=== PATIENT | female | born 1965 | race Caucasian/White ===

== ENCOUNTER → 2016-09-12 | Outpatient (REF) | payer SELFPAY ==
[~2016-09-12] MED LIST: CIPR500T89 PO; COLA100C3 PO; CORT20TA PO; DDAV0.013 PO; DULC10SU2 PR; KEPP250T5 PO; LOPR1TAB6 PO; LORT5TAB PO; META28.35 PO; MIRA3350 PO; PROTPAK PO; SYNT75TA PO; TYLE325T5 PO; ZOFR20TA PO; [UNRECOGNIZED DRUG - OTHER] PO
[2016-09-12 12:31] LABS: ANION GAP 5 MEQ/L (8-16); BLOOD UREA NITROGEN 10 MG/DL (7-18); CARBON DIOXIDE LEVEL 32 MEQ/L (21-32); CHLORIDE LEVEL 106 MEQ/L (98-107); CREATININE FOR GFR 0.94 MG/DL (0.55-1.02); FREE T4 0.86 NG/DL (0.76-1.46); GLOMERULAR FILTRATION RATE > 60.0 (>51); GLUCOSE, FASTING 95 MG/DL (70-105); POTASSIUM SERUM 4.3 MEQ/L (3.5-5.1); SODIUM LEVEL 143 MEQ/L (136-145)
== END ==
LOC: M LABDRAW1 11:26
PROVIDERS: ATTEND Internal Medicine Endocrinology, Diabetes & Metabolism
DX: D49.7 Neoplasm of unspecified behavior of endocrine glands and other parts of nervous system (principal)

== ENCOUNTER → 2017-04-03 | Outpatient (REF) | payer OTHER ==
[~2017-04-03] MED LIST changes: +CIPR-249 PO; -CIPR500T89 PO; -COLA100C3 PO; +COLA100C5 PO
[2017-04-03 13:19] LABS: ANION GAP 6 MEQ/L (8-16); BLOOD UREA NITROGEN 9 MG/DL (7-18); CARBON DIOXIDE LEVEL 32 MEQ/L (21-32); CHLORIDE LEVEL 104 MEQ/L (98-107); CREATININE FOR GFR 0.88 MG/DL (0.55-1.02); FREE T4 0.93 NG/DL (0.76-1.46); GLOMERULAR FILTRATION RATE > 60.0 (>51); GLUCOSE, FASTING 96 MG/DL (70-105); POTASSIUM SERUM 4.1 MEQ/L (3.5-5.1); SODIUM LEVEL 142 MEQ/L (136-145)
== END ==
LOC: M LABDRAW1 11:22
PROVIDERS: ATTEND Internal Medicine Endocrinology, Diabetes & Metabolism
DX: D49.7 Neoplasm of unspecified behavior of endocrine glands and other parts of nervous system (principal)

== ENCOUNTER → 2017-04-13 | Outpatient (CLI) | payer OTHER ==
[~2017-04-13] MED LIST changes: -CIPR-249 PO; -COLA100C5 PO; -CORT20TA PO; -DDAV0.013 PO; -DULC10SU2 PR; -KEPP250T5 PO; -LOPR1TAB6 PO; -LORT5TAB PO; -META28.35 PO; -MIRA3350 PO; +PROHANCE 279.3MG/ML 5ML VIAL (A9576) As Ordered; -PROTPAK PO; -SYNT75TA PO; -TYLE325T5 PO; -ZOFR20TA PO; -[UNRECOGNIZED DRUG - OTHER] PO
== END ==
LOC: M RAD 09:38
DX: D49.7 Neoplasm of unspecified behavior of endocrine glands and other parts of nervous system (principal); Z98.890 Other specified postprocedural states
CPT/HCPCS: A9576

== ENCOUNTER → 2017-10-12 | Outpatient (REF) | payer OTHER ==
[2017-10-12 19:57] LABS: ANION GAP 10 MEQ/L (8-16); BLOOD UREA NITROGEN 5 MG/DL (7-18); CALCIUM LEVEL 8.2 MG/DL (8.5-10.1); CARBON DIOXIDE LEVEL 26 MEQ/L (21-32); CHLORIDE LEVEL 109 MEQ/L (98-107); CREATININE FOR GFR 1.06 MG/DL (0.55-1.30); FREE T4 1.05 NG/DL (0.76-1.46); GLUCOSE, FASTING 196 MG/DL (70-100); POTASSIUM SERUM 3.8 MEQ/L (3.5-5.1); SODIUM LEVEL 145 MEQ/L (136-145)
== END ==
LOC: M LABDRAW1 15:24
DX: E89.0 Postprocedural hypothyroidism (principal); E27.49 Other adrenocortical insufficiency

== ENCOUNTER → 2018-05-14 | Outpatient (REF) | payer OTHER ==
[~2018-05-14] MED LIST changes: +CIPR-249 PO; +COLA100C5 PO; +CORT20TA PO; +DDAV0.013 PO; +DULC10SU2 PR; +KEPP250T5 PO; +LOPR1TAB6 PO; +LORT5TAB PO; +META28.35 PO; +MIRA3350 PO; -PROHANCE 279.3MG/ML 5ML VIAL (A9576) As Ordered; +PROTPAK PO; +SYNT75TA PO; +TYLE325T5 PO; +ZOFR4TAB16 PO; +[UNRECOGNIZED DRUG - OTHER] PO
[2018-05-14 15:27] LABS: CALCIUM LEVEL 8.5 MG/DL (8.5-10.1); CREATININE FOR GFR 1.24 MG/DL (0.55-1.30); FREE T4 0.95 NG/DL (0.76-1.46); GLOMERULAR FILTRATION RATE 48.2 (>51); POTASSIUM SERUM 3.9 MEQ/L (3.5-5.1)
== END ==
LOC: M LABDRAW1 11:48
PROVIDERS: ATTEND Nurse Practitioner Family
DX: E89.0 Postprocedural hypothyroidism (principal); E27.49 Other adrenocortical insufficiency

== ENCOUNTER → 2018-06-04 | Outpatient (CLI) | payer OTHER ==
[~2018-06-04] MED LIST changes: +PROHANCE 279.3MG/ML 15ML VIAL (A9576) As Ordered ONE; +PROHANCE 279.3MG/ML 5ML VIAL (A9576) As Ordered ONE
--- NOTE | 2018-06-04 12:26 | REP ---
MRI PITUITARY WITHOUT AND WITH CONTRAST: HISTORY: Pituitary tumor. CONTRAST: ProHance 9 mL. COMPARISON: 07/05/2015 and 04/13/2017. The patient is status post right frontotemporal craniotomy. An area of increased signal intensity on T2-weighted images is present in the right frontal lobe. There is dilatation of the overlying cortical sulci and anterior horn of the right lateral ventricle. This represents gliosis and encephalomalacia. Areas of increased signal intensity on T2-weighted images are present in the periventricular and subcortical white matter and janice. This represents small vessel ischemic disease. There is no intraparenchymal hemorrhage, infarct or midline shift. There is no hydrocephalus or extracerebral collection. A mass with moderate heterogeneous enhancement is present in the sella turcica consistent with a pituitary adenoma. The pituitary adenoma measures 3 cm in transverse by 1.9 cm in AP by 2 cm in cephalocaudal dimensions and is increased in size compared to the previous study. There is extension into the suprasellar cistern with compression of the optic chiasm. There is extension into the cavernous sinuses. Mucosal thickening is present in the right maxillary sinus. IMPRESSION: 1. There has been an increase in size of the pituitary adenoma compared to the previous study. 2. Right frontal lobe encephalomalacia. 3. Small vessel ischemic disease. Electronically Signed by Roberto Gill MD 06/04/2018 12:27 P
== END ==
LOC: M RAD 09:13
PROVIDERS: ATTEND Nurse Practitioner Family
DX: D49.7 Neoplasm of unspecified behavior of endocrine glands and other parts of nervous system (principal); G93.89 Other specified disorders of brain; I67.82 Cerebral ischemia; Z98.890 Other specified postprocedural states
CPT/HCPCS: 70553; A9576

== ENCOUNTER → 2019-09-04 | Outpatient (CLI) | payer OTHER ==
[~2019-09-04] MED LIST changes: -PROHANCE 279.3MG/ML 15ML VIAL (A9576) As Ordered ONE; -PROHANCE 279.3MG/ML 5ML VIAL (A9576) As Ordered ONE
[2019-09-04 15:35] LABS: CALCIUM LEVEL 8.5 MG/DL (8.5-10.1); CREATININE FOR GFR 1.06 MG/DL (0.55-1.30); GLOMERULAR FILTRATION RATE 57.5 (>51); POTASSIUM SERUM 3.8 MEQ/L (3.5-5.1)
== END ==
LOC: M LAB 14:48
PROVIDERS: ATTEND Internal Medicine Endocrinology, Diabetes & Metabolism
DX: D49.7 Neoplasm of unspecified behavior of endocrine glands and other parts of nervous system (principal)

== ENCOUNTER → 2019-09-08 | Outpatient (CLI) | payer OTHER ==
[~2019-09-08] MED LIST changes: +PROHANCE 279.3MG/ML 5ML VIAL As Ordered ONE
--- NOTE | 2019-09-08 14:37 | REPVR ---
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 Exam focused on the sella. Contrast material: PROHANCE; Contrast volume: 9 ml; Contrast route: IV; COMPARISON: 1. MRI-Brain W/CON 01/14/2014 8:27 AM 2. [place] - MRI PITUITARY W/O FOLL WITH 06/04/2018 10:25:00 AM The reports from the previous exams were not immediately available. FINDINGS: Brain: Chronic encephalomalacia is present in the right frontal lobe. There is no acute intracranial hemorrhage, cerebral edema, or midline shift. No restricted diffusion is present to suggest acute infarction. Multiple small foci of increased T2 and FLAIR signal within the periventricular and subcortical white matter are present. Mild increased T2 signal is also noted in the central janice. This is nonspecific but could represent early chronic microangiopathic ischemic changes, the sequela of migraine headaches, demyelinating disease, prior trauma, vasculitis, or Lyme disease. Clinical correlation is recommended. Ventricles: There is significant ex vacuo dilation of the right frontal horn. There is no hydrocephalus. Sella: Again noted is a large sellar and suprasellar mass, measuring approximately 3.0 x 2.3 x 2.3 cm (previously 3.0 x 2.2 x 2.0 cm). Invasion of the bilateral cavernous sinus is noted. There is partial encasement of both cavernous carotid arteries. The flow voids do not appear stenotic. Superior displacement and compression of the optic chiasm is noted. Bones/joints: A right pterional craniotomy is present. IMPRESSION: 1. Minimal interval enlargement of the pituitary adenoma 2. Chronic findings as discussed above. Electronically signed by: Red Shields On 09/08/2019 14:37:26 PM
== END ==
LOC: M RAD 12:12
PROVIDERS: ATTEND Internal Medicine Endocrinology, Diabetes & Metabolism
DX: D49.7 Neoplasm of unspecified behavior of endocrine glands and other parts of nervous system (principal); G93.89 Other specified disorders of brain
CPT/HCPCS: 70553; A9576

== ENCOUNTER → 2021-07-21 | Outpatient (CLI) | payer OTHER ==
[~2021-07-21] MED LIST changes: -PROHANCE 279.3MG/ML 5ML VIAL As Ordered ONE
== END ==
LOC: M RAD 10:52
PROVIDERS: ATTEND Nurse Practitioner Family
DX: Z87.891 Personal history of nicotine dependence (principal)

== ENCOUNTER → 2021-08-08 | Outpatient (CLI) | payer OTHER | LOC: M WHC 12:02 | PROVIDERS: ATTEND Nurse Practitioner Family | DX: Z12.31 Encounter for screening mammogram for malignant neoplasm of breast (principal) ==

== ENCOUNTER → 2021-12-15 | Outpatient (CLI) | payer OTHER | LOC: M PLAIMG 08:20 | PROVIDERS: ATTEND Ophthalmology | DX: E23.7 Disorder of pituitary gland, unspecified (principal) ==

== ENCOUNTER → 2022-04-13 | Outpatient (CLI) | payer OTHER | LOC: M RAD 13:45 | DX: E23.6 Other disorders of pituitary gland (principal) ==

== ENCOUNTER → 2022-06-08 | Outpatient (REF) | payer OTHER ==
[2022-06-08 18:10] LABS: CREATININE, URINE 90.6 MG/DL
[2022-06-08 18:12] LABS: MAU/CREAT RATIO 19.8 MCG/MG (0.0-30.0)
[2022-06-08 18:27] LABS: ALBUMIN 3.1 G/DL (3.2-5.2); BILIRUBIN,TOTAL 0.3 MG/DL (0.3-1.2); CALCIUM LEVEL 8.6 MG/DL (8.5-10.1); CHOLESTEROL RISK RATIO 5.12 (<5); CREATININE FOR GFR 1.11 MG/DL (0.55-1.30); GLOMERULAR FILTRATION RATE 53.9 (>51); HDL CHOLESTEROL 38.6 MG/DL (>40); LDL CHOLESTEROL 124.6 MG/DL (<100); POTASSIUM SERUM 3.9 MMOL/L (3.5-5.1); THYROID STIMULATING HORMONE 2.414 uIU/ML (0.55-4.78); TOTAL PROTEIN 6.8 G/DL (5.7-8.2)
[2022-06-08 18:29] LABS: FREE T4 0.79 NG/DL (0.89-1.76)
== END ==
LOC: M LAB REF 16:30
PROVIDERS: ATTEND Nurse Practitioner Family
DX: E11.9 Type 2 diabetes mellitus without complications (principal); E78.5 Hyperlipidemia, unspecified; D49.7 Neoplasm of unspecified behavior of endocrine glands and other parts of nervous system

== ENCOUNTER → 2022-07-06 | Outpatient (REF) | payer OTHER ==
[2022-07-06 17:30] LABS: BASO # 0.1 10^3/uL (0.0-0.2); BASO % 0.7 % (0.0-1.0); EOS # 0.5 10^3/uL (0.0-0.5); EOS % 3.2 % (0.0-3.0); HEMATOCRIT 47.7 % (36.0-47.0); HEMOGLOBIN 14.7 g/dl (12.0-15.5); LYMPH # 5.2 10^3/uL (1.5-5.0); LYMPH % 36.4 % (24.0-44.0); MEAN CORPUSCULAR HEMOGLOBIN 33.6 pg (27.0-33.0); MEAN CORPUSCULAR HGB CONC 30.8 g/dl (32.0-36.5); MEAN CORPUSCULAR VOLUME 109.2 fl (80.0-96.0); MONO # 0.7 10^3/uL (0.0-0.8); MONO % 4.6 % (2.0-8.0); NEUTROPHILS # 7.8 10^3/uL (1.5-8.5); NEUTROPHILS % 54.7 % (36.0-66.0); PLATELET COUNT, AUTOMATED 263 10^3/uL (150-450); RED BLOOD COUNT 4.37 10^6/uL (4.00-5.40); WHITE BLOOD COUNT 14.2 10^3/uL (4.0-10.0)
[2022-07-06 17:34] LABS: ALBUMIN 2.9 G/DL (3.2-5.2); BILIRUBIN,TOTAL 0.5 MG/DL (0.3-1.2); CALCIUM LEVEL 8.9 MG/DL (8.5-10.1); CREATININE FOR GFR 1.15 MG/DL (0.55-1.30); GLOMERULAR FILTRATION RATE 51.8 (>51); TOTAL PROTEIN 6.2 G/DL (5.7-8.2)
[2022-07-06 17:53] LABS: INR 0.95; PROTHROMBIN TIME 12.9 SECONDS (12.5-14.5)
== END ==
LOC: M LAB REF 16:12
PROVIDERS: ATTEND Nurse Practitioner Family
DX: Z01.818 Encounter for other preprocedural examination (principal)

== ENCOUNTER 2022-08-24 21:52 | Emergency (ER) | payer OTHER ==
[~2022-08-24] VITALS: Ht 165.1 cm; Wt 91.0 kg
[2022-08-24] MEDS ORDERED: NS 1,000 ML IV ONE (22:35)
[2022-08-24 22:45] LABS: ABG BASE EXCESS -1.7 (-2.0-2.0); ABG HCO3 22.3 MMOL/L (22.0-26.0); ABG O2 SATURATION 96.2 % (95.0-99.0); ABG PARTIAL PRESSURE CO2 35.6 mmHg (35.0-45.0); ABG TOTAL CO2 23.4 MMOL/L (22.0-29.0); ABG pH (ARTERIAL) 7.414 UNITS (7.350-7.450)
[2022-08-24 22:45] LABS: BASO # 0.1 10^3/uL (0.0-0.2); BASO % 0.8 % (0.0-1.0); EOS # 0.2 10^3/uL (0.0-0.5); EOS % 1.4 % (0.0-3.0); HEMATOCRIT 47.6 % (36.0-47.0); HEMOGLOBIN 16.2 g/dl (12.0-15.5); LYMPH # 3.3 10^3/uL (1.5-5.0); LYMPH % 28.6 % (24.0-44.0); MEAN CORPUSCULAR HEMOGLOBIN 31.5 pg (27.0-33.0); MEAN CORPUSCULAR VOLUME 92.6 fl (80.0-96.0); MONO # 0.9 10^3/uL (0.0-0.8); MONO % 7.6 % (2.0-8.0); NEUTROPHILS # 7.1 10^3/uL (1.5-8.5); NEUTROPHILS % 61.3 % (36.0-66.0); PLATELET COUNT, AUTOMATED 321 10^3/uL (150-450); RED BLOOD COUNT 5.14 10^6/uL (4.00-5.40); WHITE BLOOD COUNT 11.5 10^3/uL (4.0-10.0)
[2022-08-24 22:56] LABS: APPEARANCE, URINE HAZY (CLEAR); BACTERIA, URINE AUTO NEGATIVE (NEGATIVE); BILIRUBIN, URINE AUTO NEGATIVE (NEGATIVE); BLOOD, URINE BLOOD 1+ (NEGATIVE); COLOR, URINE AMBER (YELLOW); GLUCOSE, URINE (UA) AUTO NEGATIVE (NEGATIVE); INR 1.15; KETONE, URINE AUTO NEGATIVE (NEGATIVE); LEUKOCYTE ESTERASE, URINE AUTO TRACE (NEGATIVE); MUCUS, URINE SMALL (NEGATIVE); NITRITE, URINE AUTO NEGATIVE (NEGATIVE); PROTEIN, URINE AUTO NEGATIVE (NEGATIVE); PROTHROMBIN TIME 14.9 SECONDS (12.5-14.5); RBC, URINE AUTO 5 /HPF (0-3); SPECIFIC GRAVITY URINE AUTO 1.009 (1.002-1.035); SQUAMOUS EPITHELIAL CELL UR AU 0 /HPF (0-6); WBC, URINE AUTO 4 /HPF (0-3)
[2022-08-24 23:15] LABS: CK-MB VALUE MASS 4.7 NG/ML (<3.6)
[2022-08-24] MEDS ORDERED: NS 2,730 ML in IV 1 EA IV ONE (23:15)
[2022-08-24 23:17] LABS: ALBUMIN 2.5 G/DL (3.2-5.2); BILIRUBIN,DIRECT 1.4 MG/DL (<0.4); BILIRUBIN,TOTAL 2.1 MG/DL (0.3-1.2); C REACTIVE PROTEIN QUANTITATIV 4.8 MG/DL (<1.0); CALCIUM LEVEL 8.6 MG/DL (8.5-10.1); CREATININE FOR GFR 1.99 MG/DL (0.55-1.30); GLOMERULAR FILTRATION RATE 27.5 (>51); POTASSIUM SERUM 3.7 MMOL/L (3.5-5.1); TOTAL PROTEIN 6.9 G/DL (5.7-8.2)
[2022-08-24 23:18] LABS: RSV AMPLIFICATION NEGATIVE (NEGATIVE)
[2022-08-24 23:21] LABS: MB/CK RELATIVE INDEX 0.43 (< OR =4)
[2022-08-24] MEDS ORDERED: AZITHROMYCIN INJ 500 MG, VIAL MATE ADAPTER 1 EACH in NS 250 ML IV ONE (23:40)
[2022-08-24] MEDS ORDERED: cefTRIAXone SOD 1 GM in D5W MINI-BAG PLUS 50 ML IV ONE (23:40)
[2022-08-25] MEDS ORDERED: ROSU40TA4 PO (00:33)
[2022-08-25] MEDS ORDERED: HOME MED LIST COMPLETE! XX SCH (00:35)
[2022-08-25] MEDS ORDERED: FLUID PLACE HOLDER IV ONE (02:00)
[2022-08-25] MEDS ORDERED: DEXTROSE 50% 50ML SYRINGE IV PRN (02:00)
[2022-08-25] MEDS ORDERED: ACYCLOVIR IV SCH (02:00)
[2022-08-25] MEDS ORDERED: VANCOMYCIN HCL IV ONE (02:00)
[2022-08-25] MEDS ORDERED: GLUCAGON INJ 1MG VIAL SC PRN (02:00)
[2022-08-25] MEDS ORDERED: FLUID PLACE HOLDER IV SCH (02:00)
[2022-08-25] MEDS ORDERED: AMPICILLIN SOD 2 GM in D5W MINI-BAG PLUS 100 ML IV SCH (02:00)
[2022-08-25] MEDS ORDERED: GLUCOSE 4GM CHEW TABLET PO PRN (02:00)
[2022-08-25] MEDS ORDERED: MEROPENEM INJ 2 GM in NS 100 ML IV SCH (02:30)
[2022-08-25] MEDS ORDERED: NS 1,000 ML IV SCH (03:00)
[2022-08-25] MEDS ORDERED: VANCOMYCIN HCL 1,000 MG, VIAL MATE ADAPTER 1 EACH in D5W 250 ML IV SCH (03:00)
[2022-08-25] MEDS ORDERED: NS 1,000 ML IV ONE (03:35)
[2022-08-25] MEDS ORDERED: VANCOMYCIN HCL 1,000 MG, VIAL MATE ADAPTER 1 EACH in D5W 250 ML IV ONE (04:00)
[2022-08-25 04:49] LABS: ALBUMIN 1.8 G/DL (3.2-5.2); BILIRUBIN,TOTAL 1.7 MG/DL (0.3-1.2); CALCIUM LEVEL 7.4 MG/DL (8.5-10.1); CREATININE FOR GFR 1.79 MG/DL (0.55-1.30); GLOMERULAR FILTRATION RATE 31.1 (>51); POTASSIUM SERUM 3.4 MMOL/L (3.5-5.1); TOTAL PROTEIN 5.1 G/DL (5.7-8.2)
[2022-08-25 04:59] LABS: HEMATOCRIT 36.1 % (36.0-47.0); MEAN CORPUSCULAR HEMOGLOBIN 31.8 pg (27.0-33.0); MEAN CORPUSCULAR HGB CONC 33.5 g/dl (32.0-36.5); PLATELET COUNT, AUTOMATED 245 10^3/uL (150-450)
[2022-08-25] MEDS ORDERED: MEROPENEM INJ 1 GM in IV 1 EA IV SCH ×2 (05:00→05:30)
[2022-08-25] MEDS ORDERED: HYDROCORTISONE 10 MG TAB PO ONE (05:00)
[2022-08-25 05:01] LABS: HEMOGLOBIN 12.1 g/dl (12.0-15.5)
[2022-08-25] MEDS ORDERED: INSULIN LISPRO (NovoLOG) PER UNIT SC SCH (06:00)
[2022-08-25] MEDS ORDERED: LEVOTHYROXINE 75MCG TABLET (0.075MG) PO SCH (06:00)
[2022-08-25 10:00] VITALS: BP 97/52; TEMP 99.4; O2SAT 93
[2022-08-25] MEDS ORDERED: cefTRIAXone SOD 2 GM in D5W MINI-BAG PLUS 50 ML IV SCH (12:00)
[2022-08-25] MEDS ORDERED: HEPARIN SOD (PORCINE) 5000UNITS/ML 1ML VIAL/SYRINGE SC SCH (22:00)
[2022-08-28 12:07] LABS: BODY FLUID CULTURE Not indicated. (.); ORGANISM ID Not indicated. (.); SPECIMEN SOURCE Urine (.); URINE STREP PNEUMONIAE ANTIGEN Negative (Negative)
== END 2022-08-25 10:02 | disposition short-term general hospital (02) ==
LOC: M ED 21:52 → UNDOADMIN 08-25 01:59 → M ED INP 08-25 01:59 → UNDODISIN 08-25 10:02
DX: T81.49XA Infection following a procedure, other surgical site, initial encounter (principal); Y83.8 Other surgical procedures as the cause of abnormal reaction of the patient, or of later complication, without mention of misadventure at the time of the procedure; N17.9 Acute kidney failure, unspecified; T81.44XA Sepsis following a procedure, initial encounter; A41.9 Sepsis, unspecified organism; J18.9 Pneumonia, unspecified organism; E87.20 Acidosis, unspecified; M62.82 Rhabdomyolysis; E86.0 Dehydration; E78.00 Pure hypercholesterolemia, unspecified; E03.9 Hypothyroidism, unspecified; I10 Essential (primary) hypertension; G40.909 Epilepsy, unspecified, not intractable, without status epilepticus; K21.9 Gastro-esophageal reflux disease without esophagitis; Z79.899 Other long term (current) drug therapy; Z79.890 Hormone replacement therapy; F17.200 Nicotine dependence, unspecified, uncomplicated
CPT/HCPCS: 36415; 36600; 51701; 70450; 71045; 80048; 80053; 80076; 81001; 82150; 82550; 82553; 82803; 83605; 84145; 85025; 85027; 85610; 85730; 86140; 86850; 86900; 86901; 87040; 87086; 87631; 87899; 93005; 93041; 94760; 96365; 96366; 96367; 96368; 96376; 99285; J0456; J0696

== ENCOUNTER → 2022-12-25 | Outpatient (CLI) | payer OTHER ==
[~2022-12-25] MED LIST changes: +ROSU40TA4 PO
== END ==
LOC: M RAD 09:05
PROVIDERS: ATTEND Family Medicine Addiction Medicine
DX: F17.210 Nicotine dependence, cigarettes, uncomplicated (principal)

== ENCOUNTER 2023-02-08 12:09 | Emergency (ER) | payer OTHER ==
[~2023-02-08] VITALS: Ht 162.6 cm; Wt 102.2 kg
[2023-02-08] MEDS ORDERED: hydrocortisone PO (12:28)
[2023-02-08] MEDS ORDERED: CARV6.25 (12:28)
[2023-02-08] MEDS ORDERED: LEVO125T4 (12:28)
[2023-02-08 13:50] LABS: BASO # 0.1 10^3/uL (0.0-0.2); BASO % 0.7 % (0.0-1.0); EOS # 0.2 10^3/uL (0.0-0.5); EOS % 1.5 % (0.0-3.0); HEMATOCRIT 44.4 % (36.0-47.0); HEMOGLOBIN 13.1 g/dl (12.0-15.5); LYMPH # 2.5 10^3/uL (1.5-5.0); LYMPH % 19.2 % (24.0-44.0); MEAN CORPUSCULAR HEMOGLOBIN 24.7 pg (27.0-33.0); MEAN CORPUSCULAR HGB CONC 29.5 g/dl (32.0-36.5); MEAN CORPUSCULAR VOLUME 83.8 fl (80.0-96.0); MONO # 0.6 10^3/uL (0.0-0.8); MONO % 4.8 % (2.0-8.0); NEUTROPHILS # 9.6 10^3/uL (1.5-8.5); NEUTROPHILS % 73.3 % (36.0-66.0); PLATELET COUNT, AUTOMATED 284 10^3/uL (150-450)
[2023-02-08 14:04] LABS: INR 1.05; PARTIAL THROMBOPLASTIN TIME 27.8 SECONDS (24.8-34.2); PROTHROMBIN TIME 13.4 SECONDS (12.5-14.5)
[2023-02-08 14:16] LABS: CALCIUM LEVEL 9.1 MG/DL (8.5-10.1); CREATININE FOR GFR 1.27 MG/DL (0.55-1.30); GLOMERULAR FILTRATION RATE 46.2 (>51); POTASSIUM SERUM 4.6 MMOL/L (3.5-5.1)
[2023-02-08 15:14] VITALS: BP 160/70; TEMP 98; O2SAT 95
== END 2023-02-08 15:37 | disposition home or self-care (01) ==
LOC: M ED 12:09
DX: M25.572 Pain in left ankle and joints of left foot (principal); M25.571 Pain in right ankle and joints of right foot; M79.89 Other specified soft tissue disorders; I87.9 Disorder of vein, unspecified; E11.9 Type 2 diabetes mellitus without complications; I10 Essential (primary) hypertension; F17.210 Nicotine dependence, cigarettes, uncomplicated; Z88.0 Allergy status to penicillin; Z79.899 Other long term (current) drug therapy

== ENCOUNTER 2023-05-07 07:20 | Inpatient (IN) | payer OTHER ==
[~2023-05-07] VITALS: Ht 162.6 cm; Wt 107.1 kg
[~2023-05-07 07:20] MED LIST changes: +CARV6.25 PO; +LEVO125T4 PO; +hydrocortisone PO
[2023-05-07] MEDS ORDERED: ACETAMINOPHEN TAB 650MG DOSE (2X325MG) PO ONE (08:10)
[2023-05-07 08:34] LABS: APPEARANCE, URINE CLEAR (CLEAR); BACTERIA, URINE AUTO NEGATIVE (NEGATIVE); BILIRUBIN, URINE AUTO NEGATIVE (NEGATIVE); BLOOD, URINE BLOOD 1+ (NEGATIVE); COLOR, URINE STRAW (YELLOW); GLUCOSE, URINE (UA) AUTO NEGATIVE (NEGATIVE); KETONE, URINE AUTO NEGATIVE (NEGATIVE); LEUKOCYTE ESTERASE, URINE AUTO NEGATIVE (NEGATIVE); NITRITE, URINE AUTO NEGATIVE (NEGATIVE); PROTEIN, URINE AUTO NEGATIVE (NEGATIVE); RBC, URINE AUTO 1 /HPF (0-3); SPECIFIC GRAVITY URINE AUTO 1.005 (1.002-1.035); SQUAMOUS EPITHELIAL CELL UR AU 0 /HPF (0-6); UROBILINOGEN, URINE AUTO 0.2 mg/dL (0.0-2.0); WBC, URINE AUTO 1 /HPF (0-3)
[2023-05-07 08:42] LABS: BASO # 0.1 10^3/uL (0.0-0.2); BASO % 0.5 % (0.0-1.0); EOS # 0.1 10^3/uL (0.0-0.5); EOS % 1.1 % (0.0-3.0); HEMATOCRIT 47.6 % (36.0-47.0); HEMOGLOBIN 14.7 g/dl (12.0-15.5); LYMPH # 2.1 10^3/uL (1.5-5.0); LYMPH % 21.6 % (24.0-44.0); MEAN CORPUSCULAR HEMOGLOBIN 27.2 pg (27.0-33.0); MEAN CORPUSCULAR HGB CONC 30.9 g/dl (32.0-36.5); MONO # 0.7 10^3/uL (0.0-0.8); MONO % 7.2 % (2.0-8.0); NEUTROPHILS # 6.8 10^3/uL (1.5-8.5); NEUTROPHILS % 69.2 % (36.0-66.0); PLATELET COUNT, AUTOMATED 179 10^3/uL (150-450); RED BLOOD COUNT 5.41 10^6/uL (4.00-5.40); WHITE BLOOD COUNT 9.8 10^3/uL (4.0-10.0)
[2023-05-07] MEDS ORDERED: HYDROCORTISONE 100MG/2ML VIAL IV ONE (08:50)
[2023-05-07] MEDS ORDERED: NS 1,000 ML IV ONE (08:50)
[2023-05-07] MEDS ORDERED: CEFEPIME HCL 2 GM in D5W MINI-BAG PLUS 50 ML IV ONE (08:50)
[2023-05-07] MEDS: LEVOTHYROXINE 100MCG (0.1MG) 5ML SDV PF (SOLUTION FORM) IV SCH (09:00)
[2023-05-07 09:05] LABS: ABG BASE EXCESS 5.2 (-2.0-2.0); ABG HCO3 29.9 MMOL/L (22.0-26.0); ABG O2 SATURATION 95.2 % (95.0-99.0); ABG PARTIAL PRESSURE CO2 43.8 mmHg (35.0-45.0); ABG PARTIAL PRESSURE O2 72.7 mmHg (75.0-100.0); ABG STANDARD HCO3 29.1 MMOL/L. (22.0-26.0); ABG TOTAL CO2 31.2 MMOL/L (22.0-29.0); ABG pH (ARTERIAL) 7.452 UNITS (7.350-7.450)
[2023-05-07 09:06] LABS: AMYLASE 32 U/L (30-118)
[2023-05-07 09:10] LABS: FREE T4 0.63 NG/DL (0.89-1.76); THYROID STIMULATING HORMONE 2.106 uIU/ML (0.55-4.78)
[2023-05-07 09:13] LABS: PROCALCITONIN 0.25 ng/ml
[2023-05-07 09:19] LABS: INR 1.06; PARTIAL THROMBOPLASTIN TIME 28.4 SECONDS (24.8-34.2); PROTHROMBIN TIME 13.5 SECONDS (12.5-14.5)
[2023-05-07 09:20] LABS: ALBUMIN 3.1 G/DL (3.2-5.2); ALKALINE PHOSPHATASE 87 U/L (46-116); ALT/SGPT 11 U/L (7.0-40); AST/SGOT 26 U/L (<34); BILIRUBIN,DIRECT 0.2 MG/DL (<0.4); BILIRUBIN,TOTAL 0.4 MG/DL (0.3-1.2); BLOOD UREA NITROGEN < 5 MG/DL (9-23); CALCIUM LEVEL 8.1 MG/DL (8.5-10.1); CARBON DIOXIDE LEVEL 34 MMOL/L (20-31); CHLORIDE LEVEL 109 MMOL/L (98-107); CREATININE FOR GFR 1.58 MG/DL (0.55-1.30); GLOMERULAR FILTRATION RATE 35.8 (>51); GLUCOSE, FASTING 144 MG/DL (60-100); POTASSIUM SERUM 2.9 MMOL/L (3.5-5.1); SODIUM LEVEL 148 MMOL/L (136-145); TOTAL PROTEIN 6.6 G/DL (5.7-8.2)
[2023-05-07] MEDS ORDERED: KCL 10MEQ/100ML SWI (KRUN) 10 MEQ in IV 1 EA IV ONE (09:20)
[2023-05-07] MEDS ORDERED: MED REC IN PROGRESS XX SCH (10:00)
[2023-05-07] MEDS ORDERED: HYDR-4467 PO ×2 (11:07→22:25)
[2023-05-07] MEDS ORDERED: D5W 1,000 ML IV SCH (11:20)
[2023-05-07] MEDS ORDERED: ACETAMINOPHEN *IV* 1,000 MG in IV 1 EA IV ONE (11:30)
[2023-05-07] MEDS: IPRATROPIUM 0.5MG/ALBUTEROL 2.5MG INH SOL UD 3ML (DUONEB) NEB SCH ×3 (11:39→20:15)
[2023-05-07] MEDS: KCL 10MEQ/100ML SWI (KRUN) 10 MEQ in IV 1 EA IV SCH ×4 (11:57→15:06)
[2023-05-07] MEDS ORDERED: LR 1,000 ML IV ONE (12:30)
[2023-05-07] MEDS ORDERED: REMDESIVIR 200 MG in NS 250 ML IV ONE (13:00)
[2023-05-07] MEDS: D5W/0.45% SODIUM CHLORIDE 1,000 ML IV SCH (13:06)
[2023-05-07] MEDS: HEPARIN SOD (PORCINE) 5000UNITS/ML 1ML VIAL/SYRINGE SQ SCH ×2 (14:00→21:23)
[2023-05-07] MEDS ORDERED: MED REC CURRENTLY UNOBTAINABLE XX SCH (15:25)
[2023-05-07 18:44] LABS: CALCIUM LEVEL 7.2 MG/DL (8.5-10.1); CREATININE FOR GFR 1.91 MG/DL (0.55-1.30); GLOMERULAR FILTRATION RATE 28.7 (>51); POTASSIUM SERUM 3.8 MMOL/L (3.5-5.1)
[2023-05-07 22:25] VITALS: BP 128/63; TEMP 97.2; O2SAT 94
[2023-05-08] VITALS (9 sets, daily range): BP systolic 126–149; BP diastolic 60–78; TEMP 97.3–98; O2SAT 92–94
[2023-05-08] MEDS: D5W/0.45% SODIUM CHLORIDE 1,000 ML IV SCH ×2 (05:06→19:02)
[2023-05-08] MEDS: HEPARIN SOD (PORCINE) 5000UNITS/ML 1ML VIAL/SYRINGE SQ SCH ×3 (05:45→21:19)
[2023-05-08 06:07] LABS: BASO % 0.3 % (0.0-1.0); HEMATOCRIT 40.8 % (36.0-47.0); LYMPH # 1.2 10^3/uL (1.5-5.0); LYMPH % 14.4 % (24.0-44.0); MEAN CORPUSCULAR HEMOGLOBIN 27.6 pg (27.0-33.0); MEAN CORPUSCULAR HGB CONC 30.9 g/dl (32.0-36.5); MEAN CORPUSCULAR VOLUME 89.3 fl (80.0-96.0); MONO # 0.1 10^3/uL (0.0-0.8); MONO % 1.4 % (2.0-8.0); NEUTROPHILS # 7.2 10^3/uL (1.5-8.5); NEUTROPHILS % 83.3 % (36.0-66.0); PLATELET COUNT, AUTOMATED 174 10^3/uL (150-450); RED BLOOD COUNT 4.57 10^6/uL (4.00-5.40); WHITE BLOOD COUNT 8.6 10^3/uL (4.0-10.0)
[2023-05-08 06:15] LABS: HEMOGLOBIN 12.6 g/dl (12.0-15.5)
[2023-05-08 06:33] LABS: ALBUMIN 2.3 G/DL (3.2-5.2); ALKALINE PHOSPHATASE 65 U/L (46-116); ALT/SGPT 10 U/L (7.0-40); AST/SGOT 19 U/L (<34); BILIRUBIN,DIRECT < 0.1 MG/DL (<0.4); BILIRUBIN,TOTAL 0.2 MG/DL (0.3-1.2); BLOOD UREA NITROGEN 10 MG/DL (9-23); CALCIUM LEVEL 7.7 MG/DL (8.5-10.1); CARBON DIOXIDE LEVEL 29 MMOL/L (20-31); CHLORIDE LEVEL 109 MMOL/L (98-107); CREATININE FOR GFR 1.52 MG/DL (0.55-1.30); GLOMERULAR FILTRATION RATE 37.4 (>51); GLUCOSE, FASTING 322 MG/DL (60-100); PHOSPHORUS LEVEL 1.9 MG/DL (2.5-4.9); POTASSIUM SERUM 3.8 MMOL/L (3.5-5.1); SODIUM LEVEL 145 MMOL/L (136-145); TOTAL PROTEIN 5.5 G/DL (5.7-8.2)
[2023-05-08] MEDS: IPRATROPIUM 0.5MG/ALBUTEROL 2.5MG INH SOL UD 3ML (DUONEB) NEB SCH (07:57)
[2023-05-08] MEDS: LEVOTHYROXINE 100MCG (0.1MG) 5ML SDV PF (SOLUTION FORM) IV SCH (09:32)
[2023-05-08] MEDS ORDERED: HYDR-4467 PO (10:12)
[2023-05-08] MEDS ORDERED: HYDR-4468 PO (10:12)
[2023-05-08] MEDS ORDERED: HOME MED LIST COMPLETE! XX SCH (10:25)
[2023-05-08] MEDS ORDERED: IPRATROPIUM 0.5MG/ALBUTEROL 2.5MG INH SOL UD 3ML (DUONEB) NEB PRN (12:50)
[2023-05-08] MEDS: REMDESIVIR 100 MG in NS 250 ML IV SCH (13:29)
[2023-05-09 06:00] VITALS: BP 157/77; TEMP 98.4; O2SAT 95
[2023-05-09] MEDS: LEVOTHYROXINE 88MCG TABLET (0.088 MG) PO SCH (06:16)
[2023-05-09] MEDS: HEPARIN SOD (PORCINE) 5000UNITS/ML 1ML VIAL/SYRINGE SQ SCH ×3 (06:16→21:34)
[2023-05-09 06:33] LABS: CALCIUM LEVEL 7.9 MG/DL (8.5-10.1); CREATININE FOR GFR 1.1 MG/DL (0.55-1.30); GLOMERULAR FILTRATION RATE 54.3 (>51); POTASSIUM SERUM 3.9 MMOL/L (3.5-5.1)
[2023-05-09 09:08] LABS: HEMOGLOBIN A1c 7.4 % (4.0-6.0)
[2023-05-09 12:34] VITALS: O2SAT 92
[2023-05-09] MEDS: REMDESIVIR 100 MG in NS 250 ML IV SCH (13:37)
[2023-05-09 14:00] VITALS: BP 178/97; TEMP 98.2; O2SAT 93
[2023-05-09] MEDS ORDERED: GLUCOSE 4GM CHEW TABLET PO PRN (14:10)
[2023-05-09] MEDS ORDERED: DEXTROSE 50% 50ML SYRINGE IV PRN (14:10)
[2023-05-09] MEDS ORDERED: GLUCAGON INJ 1MG VIAL SC PRN (14:10)
[2023-05-09] MEDS: INSULIN LISPRO (NovoLOG) PER UNIT SC SCH ×2 (17:28→21:34)
[2023-05-09 18:28] VITALS: BP 183/94
[2023-05-09] MEDS ORDERED: CARVedilol 6.25 MG TAB PO ONE (18:30)
[2023-05-09 20:36] VITALS: BP 138/69; TEMP 98.4; O2SAT 93
[2023-05-09] MEDS: HYDROCORTISONE 10 MG TAB PO SCH (21:38)
[2023-05-10] MEDS: HEPARIN SOD (PORCINE) 5000UNITS/ML 1ML VIAL/SYRINGE SQ SCH ×3 (05:51→21:18)
[2023-05-10] MEDS: LEVOTHYROXINE 88MCG TABLET (0.088 MG) PO SCH (05:51)
[2023-05-10 06:00] VITALS: BP 137/76; TEMP 97.9; O2SAT 94
[2023-05-10] MEDS: INSULIN LISPRO (NovoLOG) PER UNIT SC SCH ×4 (07:37→21:17)
[2023-05-10] MEDS: HYDROCORTISONE 10 MG TAB PO SCH ×2 (07:37→21:17)
[2023-05-10] MEDS: CARVedilol 6.25 MG TAB PO SCH ×2 (07:38→21:16)
[2023-05-10 08:04] LABS: CALCIUM LEVEL 8.2 MG/DL (8.5-10.1); CREATININE FOR GFR 1.08 MG/DL (0.55-1.30); GLOMERULAR FILTRATION RATE 55.5 (>51); MAGNESIUM LEVEL 2.2 MG/DL (1.8-2.4); POTASSIUM SERUM 4.2 MMOL/L (3.5-5.1)
[2023-05-10] MEDS: REMDESIVIR 100 MG in NS 250 ML IV SCH (11:56)
[2023-05-10 14:00] VITALS: BP 160/80; TEMP 98.1; O2SAT 94
[2023-05-10] MEDS ORDERED: COMBIVENT RESPIMAT 100-20MCG INHALER 4GM INH PRN (16:35)
[2023-05-10 17:12] VITALS: BP 174/82
[2023-05-10 21:11] VITALS: BP 172/76; TEMP 98.2
[2023-05-11] VITALS (15 sets, daily range): BP systolic 130–175; BP diastolic 78–94; TEMP 97.5–97.9; O2SAT 80–97
[2023-05-11] MEDS: HEPARIN SOD (PORCINE) 5000UNITS/ML 1ML VIAL/SYRINGE SQ SCH ×3 (05:46→21:38)
[2023-05-11] MEDS: LEVOTHYROXINE 88MCG TABLET (0.088 MG) PO SCH (05:46)
[2023-05-11 05:58] LABS: BLOOD UREA NITROGEN 19 MG/DL (9-23); CALCIUM LEVEL 8.1 MG/DL (8.5-10.1); CARBON DIOXIDE LEVEL 28 MMOL/L (20-31); CHLORIDE LEVEL 107 MMOL/L (98-107); CREATININE FOR GFR 0.95 MG/DL (0.55-1.30); GLOMERULAR FILTRATION RATE > 60.0 (>51); GLUCOSE, FASTING 258 MG/DL (60-100); MAGNESIUM LEVEL 2.1 MG/DL (1.8-2.4); POTASSIUM SERUM 4.2 MMOL/L (3.5-5.1); SODIUM LEVEL 142 MMOL/L (136-145)
[2023-05-11] MEDS ORDERED: HYDR-4467 PO (07:58)
[2023-05-11] MEDS ORDERED: **hydrALAZINE** 10 MG TAB PO SCH (09:00)
[2023-05-11] MEDS: HYDROCORTISONE 10 MG TAB PO SCH (09:13)
[2023-05-11] MEDS: INSULIN LISPRO (NovoLOG) PER UNIT SC SCH ×4 (09:16→21:38)
[2023-05-11] MEDS: CARVedilol 6.25 MG TAB PO SCH ×2 (09:16→21:40)
[2023-05-11] MEDS ORDERED: HYDROCORTISONE 10 MG TAB PO SCH (12:00)
[2023-05-11] MEDS: REMDESIVIR 100 MG in NS 250 ML IV SCH (13:00)
[2023-05-11] MEDS: **hydrALAZINE** 10 MG TAB PO SCH ×2 (15:02→21:40)
[2023-05-11] MEDS ORDERED: HYDR-3910 PO (16:51)
[2023-05-11] MEDS ORDERED: SYNT88TA2 PO (16:51)
[2023-05-11] MEDS ORDERED: COMBAER6 INH (16:54)
[2023-05-11] MEDS ORDERED: LEVO-96 PO (16:56)
[2023-05-12] MEDS ORDERED: METF-839 PO (03:39)
[2023-05-12] MEDS ORDERED: ACCUKIT XX (03:42)
[2023-05-12] MEDS ORDERED: BLOO-76 MC (03:42)
[2023-05-12 05:15] VITALS: BP 194/96; TEMP 98.2; O2SAT 93
[2023-05-12] MEDS ORDERED: **hydrALAZINE** 10 MG TAB PO ONE (05:35)
[2023-05-12] MEDS: HEPARIN SOD (PORCINE) 5000UNITS/ML 1ML VIAL/SYRINGE SQ SCH ×3 (05:54→21:09)
[2023-05-12] MEDS: LEVOTHYROXINE 88MCG TABLET (0.088 MG) PO SCH (05:55)
[2023-05-12] MEDS: INSULIN LISPRO (NovoLOG) PER UNIT SC SCH ×4 (08:15→20:54)
[2023-05-12] MEDS: **hydrALAZINE** 50 MG TAB PO SCH ×3 (08:20→20:55)
[2023-05-12] MEDS: HYDROCORTISONE 10 MG TAB PO SCH (08:20)
[2023-05-12] MEDS: CARVedilol 6.25 MG TAB PO SCH ×2 (08:20→20:55)
[2023-05-12 10:07] LABS: CALCIUM LEVEL 7.7 MG/DL (8.5-10.1); CREATININE FOR GFR 1.01 MG/DL (0.55-1.30); GLOMERULAR FILTRATION RATE 59.9 (>51); POTASSIUM SERUM 3.3 MMOL/L (3.5-5.1)
[2023-05-12 12:02] VITALS: BP 166/84
[2023-05-12] MEDS ORDERED: HYDR50TA46 PO (12:27)
[2023-05-12] MEDS ORDERED: POTASSIUM CHLORIDE 10% LIQ 20MEQ/15ML UDC PO ONE (12:30)
[2023-05-12] MEDS ORDERED: INSULIN LISPRO (NovoLOG) PER UNIT SC STA (12:30)
[2023-05-12] MEDS: KCL 10MEQ/100ML SWI (KRUN) 10 MEQ in IV 1 EA IV SCH (12:39)
[2023-05-12 14:00] VITALS: BP 167/81; TEMP 98.4; O2SAT 96
[2023-05-12] MEDS ORDERED: GLUCMIS7 XX (14:02)
[2023-05-12] MEDS ORDERED: LANC1COM MC (14:02)
[2023-05-12 15:54] LABS: CREATININE FOR GFR 1.13 MG/DL (0.55-1.30); GLOMERULAR FILTRATION RATE 52.6 (>51); POTASSIUM SERUM 4.2 MMOL/L (3.5-5.1)
[2023-05-12 22:00] VITALS: BP 158/78; TEMP 98.2; O2SAT 95
[2023-05-13 05:11] VITALS: BP 168/74; TEMP 98.4; O2SAT 94
[2023-05-13] MEDS: LEVOTHYROXINE 88MCG TABLET (0.088 MG) PO SCH (05:32)
[2023-05-13] MEDS: HEPARIN SOD (PORCINE) 5000UNITS/ML 1ML VIAL/SYRINGE SQ SCH (05:33)
[2023-05-13 07:00] LABS: CALCIUM LEVEL 7.9 MG/DL (8.5-10.1); CREATININE FOR GFR 1.06 MG/DL (0.55-1.30); GLOMERULAR FILTRATION RATE 56.7 (>51); MAGNESIUM LEVEL 2.2 MG/DL (1.8-2.4); POTASSIUM SERUM 4.2 MMOL/L (3.5-5.1)
[2023-05-13] MEDS: INSULIN LISPRO (NovoLOG) PER UNIT SC SCH (07:43)
[2023-05-13] MEDS: HYDROCORTISONE 10 MG TAB PO SCH (07:43)
[2023-05-13 07:44] VITALS: BP 168/72
[2023-05-13] MEDS: CARVedilol 6.25 MG TAB PO SCH (07:44)
[2023-05-13] MEDS: **hydrALAZINE** 50 MG TAB PO SCH (07:44)
== END 2023-05-13 10:40 | disposition home health service (06) | DRG 52 ==
LOC: M ED 07:20 → EDBD 07:20 → M ED INP 11:17 → M PCU 22:25 → M MSPAV 05-08 16:47
PROVIDERS: ADMIT Internal Medicine; ATTEND Student in an Organized Health Care Education/Training Program
PROC: XW033E5 Introduction of Remdesivir Anti-infective into Peripheral Vein, Percutaneous Approach, New Technology Group 5 (ICD-10-PCS; principal; 2023-05-07)
PROC: 3E0333Z Introduction of Anti-inflammatory into Peripheral Vein, Percutaneous Approach (ICD-10-PCS; 2023-05-07)
DX: G93.41 Metabolic encephalopathy (principal); U07.1 COVID-19; I13.0 Hypertensive heart and chronic kidney disease with heart failure and stage 1 through stage 4 chronic kidney disease, or unspecified chronic kidney disease; E87.0 Hyperosmolality and hypernatremia; D69.6 Thrombocytopenia, unspecified; E27.49 Other adrenocortical insufficiency; I50.22 Chronic systolic (congestive) heart failure; I95.9 Hypotension, unspecified; E11.22 Type 2 diabetes mellitus with diabetic chronic kidney disease; E23.0 Hypopituitarism; G47.30 Sleep apnea, unspecified; E87.1 Hypo-osmolality and hyponatremia; E11.65 Type 2 diabetes mellitus with hyperglycemia; K76.0 Fatty (change of) liver, not elsewhere classified; N18.30 Chronic kidney disease, stage 3 unspecified; E03.9 Hypothyroidism, unspecified; E78.00 Pure hypercholesterolemia, unspecified; D64.9 Anemia, unspecified; R74.01 Elevation of levels of liver transaminase levels; E87.6 Hypokalemia; Z79.890 Hormone replacement therapy; Z79.899 Other long term (current) drug therapy; Z88.0 Allergy status to penicillin

== ENCOUNTER 2023-05-27 02:10 | Inpatient (IN) | payer MEDICAID, OTHER ==
[2023-05-27] VITALS (30 sets, daily range): BP systolic 88–143; BP diastolic 52–84; TEMP 97.7–99; O2SAT 89–100
[~2023-05-27] VITALS: Ht 162.6 cm; Wt 105.0 kg
[~2023-05-27 02:10] MED LIST changes: +ACCUKIT XX; +BLOO-76 MC; +COMBAER6 INH; +GLUCMIS7 XX; +HYDR-4467 PO; +HYDR-4468 PO; +HYDR25TA87 PO; +HYDR50TA46 PO; +LANC1COM MC; +LEVO-96 PO; +METF-839 PO; +SYNT88TA2 PO
[2023-05-27 02:54] LABS: ABG BASE EXCESS 1.9 (-2.0-2.0); ABG HCO3 25.9 MMOL/L (22.0-26.0); ABG PARTIAL PRESSURE CO2 38.8 mmHg (35.0-45.0); ABG PARTIAL PRESSURE O2 55.9 mmHg (75.0-100.0); ABG TOTAL CO2 27.1 MMOL/L (22.0-29.0); ABG pH (ARTERIAL) 7.443 UNITS (7.350-7.450)
[2023-05-27 03:05] LABS: ALBUMIN 2.1 G/DL (3.2-5.2); BILIRUBIN,DIRECT 0.7 MG/DL (<0.4); BILIRUBIN,TOTAL 1.2 MG/DL (0.3-1.2); CALCIUM LEVEL 7.1 MG/DL (8.5-10.1); CK-MB VALUE MASS 1.5 NG/ML (<3.6); CREATININE FOR GFR 4.17 MG/DL (0.55-1.30); GLOMERULAR FILTRATION RATE 11.7 (>51); POTASSIUM SERUM 4.4 MMOL/L (3.5-5.1); TOTAL PROTEIN 5.5 G/DL (5.7-8.2)
[2023-05-27] MEDS: ACETAMINOPHEN *IV* 1,000 MG in IV 1 EA IV ONE (03:05)
[2023-05-27] MEDS: cefTRIAXone SOD 2 GM in D5W MINI-BAG PLUS 50 ML IV ONE (03:05)
[2023-05-27 03:07] LABS: FREE T4 1.31 NG/DL (0.89-1.76)
[2023-05-27 03:08] LABS: THYROID STIMULATING HORMONE 0.032 uIU/ML (0.55-4.78)
[2023-05-27] MEDS: HYDROCORTISONE 100MG/2ML VIAL IV ONE (03:10)
[2023-05-27] MEDS: IPRATROPIUM 0.5MG/ALBUTEROL 2.5MG INH SOL UD 3ML (DUONEB) NEB SCH ×2 (03:11→13:42)
[2023-05-27 03:13] LABS: BASO # 0.1 10^3/uL (0.0-0.2); BASO % 0.4 % (0.0-1.0); EOS # 0.2 10^3/uL (0.0-0.5); EOS % 1.2 % (0.0-3.0); HEMATOCRIT 37.4 % (36.0-47.0); HEMOGLOBIN 13.2 g/dl (12.0-15.5); LYMPH # 5.3 10^3/uL (1.5-5.0); LYMPH % 30.1 % (24.0-44.0); MEAN CORPUSCULAR HEMOGLOBIN 33.5 pg (27.0-33.0); MEAN CORPUSCULAR HGB CONC 35.3 g/dl (32.0-36.5); MEAN CORPUSCULAR VOLUME 94.9 fl (80.0-96.0); MONO # 1.2 10^3/uL (0.0-0.8); MONO % 6.7 % (2.0-8.0); NEUTROPHILS # 10.7 10^3/uL (1.5-8.5); NEUTROPHILS % 61.1 % (36.0-66.0); PLATELET COUNT, AUTOMATED 269 10^3/uL (150-450); RED BLOOD COUNT 3.94 10^6/uL (4.00-5.40); WHITE BLOOD COUNT 17.5 10^3/uL (4.0-10.0)
[2023-05-27 03:14] LABS: MB/CK RELATIVE INDEX 0.2 (< OR =4)
[2023-05-27] MEDS: NS IV ONE (03:42)
[2023-05-27 04:07] LABS: VENOUS BASE EXCESS 0.5 (-2.0-2.0); VENOUS PARTIAL PRESSURE CO2 51.1 mmHg (38.0-50.0); VENOUS PARTIAL PRESSURE O2 57.8 mmHg (30.0-50.0); VENOUS STANDARD HCO3 24.7 MMOL/L; VENOUS TOTAL CO2 28.5 MMOL/L (24.0-28.0)
[2023-05-27 04:40] LABS: CK-MB VALUE MASS 2.9 NG/ML (<3.6)
[2023-05-27 04:51] LABS: MB/CK RELATIVE INDEX 0.36 (< OR =4)
[2023-05-27] MEDS: NOREPINEPHRINE 4MG IN D5 250ML 4 MG in IV 1 EA IV SCH (05:17)
[2023-05-27 08:06] LABS: BILIRUBIN,TOTAL 0.9 MG/DL (0.3-1.2); CALCIUM LEVEL 7.2 MG/DL (8.5-10.1); CREATININE FOR GFR 4.74 MG/DL (0.55-1.30); GLOMERULAR FILTRATION RATE 10.1 (>51); POTASSIUM SERUM 4.9 MMOL/L (3.5-5.1); TOTAL PROTEIN 5.5 G/DL (5.7-8.2)
[2023-05-27] MEDS ORDERED: NOREPINEPHRINE 4MG IN D5 250ML 4 MG in IV 1 EA IV SCH (09:40)
[2023-05-27] MEDS ORDERED: LEVO175T2 PO (11:17)
[2023-05-27] MEDS ORDERED: METF500T13 PO (11:17)
[2023-05-27] MEDS ORDERED: HYDR50TA46 PO (11:17)
[2023-05-27] MEDS ORDERED: COMBAER6 INH (11:17)
[2023-05-27] MEDS ORDERED: HOME MED LIST COMPLETE! XX SCH (11:20)
[2023-05-27] MEDS: HYDROCORTISONE 100MG/2ML VIAL IV SCH (12:39)
[2023-05-27] MEDS: PANTOPRAZOLE 40MG VIAL IV SCH (12:39)
[2023-05-27] MEDS: HEPARIN SOD (PORCINE) 5000UNITS/ML 1ML VIAL/SYRINGE SC SCH (14:24)
[2023-05-27 15:47] LABS: BILIRUBIN,TOTAL 0.3 MG/DL (0.3-1.2); CALCIUM LEVEL 6.9 MG/DL (8.5-10.1); CREATININE FOR GFR 5.45 MG/DL (0.55-1.30); GLOMERULAR FILTRATION RATE 8.6 (>51); MAGNESIUM LEVEL 1.7 MG/DL (1.8-2.4); PHOSPHORUS LEVEL 4.3 MG/DL (2.5-4.9); POTASSIUM SERUM 4.5 MMOL/L (3.5-5.1); TOTAL PROTEIN 5.4 G/DL (5.7-8.2)
[2023-05-27] MEDS: MAG SULF 1GM/100ML (MAG RUN) 1 GM in IV 1 EA IV ONE (18:41)
[2023-05-27] MEDS: guaiFENesin SYRUP 200MG 10ML UDC PO PRN (21:22)
[2023-05-27] MEDS: LR 1,000 ML IV SCH (21:22)
[2023-05-28] VITALS (16 sets, daily range): BP systolic 114–151; BP diastolic 52–81; TEMP 97.5–98.2; O2SAT 91–98
[2023-05-28 04:26] LABS: BASO % 0.1 % (0.0-1.0); EOS % 0.1 % (0.0-3.0); HEMATOCRIT 30.6 % (36.0-47.0); LYMPH # 1.7 10^3/uL (1.5-5.0); LYMPH % 12.3 % (24.0-44.0); MEAN CORPUSCULAR HGB CONC 32.7 g/dl (32.0-36.5); MEAN CORPUSCULAR VOLUME 88.7 fl (80.0-96.0); MONO # 0.6 10^3/uL (0.0-0.8); MONO % 4.1 % (2.0-8.0); NEUTROPHILS # 11.6 10^3/uL (1.5-8.5); NEUTROPHILS % 83.1 % (36.0-66.0); PLATELET COUNT, AUTOMATED 205 10^3/uL (150-450); RED BLOOD COUNT 3.45 10^6/uL (4.00-5.40); WHITE BLOOD COUNT 13.9 10^3/uL (4.0-10.0)
[2023-05-28 04:29] LABS: BILIRUBIN,TOTAL 0.2 MG/DL (0.3-1.2); CALCIUM LEVEL 7.1 MG/DL (8.5-10.1); CREATININE FOR GFR 6.11 MG/DL (0.55-1.30); GLOMERULAR FILTRATION RATE 7.5 (>51); POTASSIUM SERUM 4.1 MMOL/L (3.5-5.1); TOTAL PROTEIN 5.5 G/DL (5.7-8.2)
[2023-05-28] MEDS: LEVOTHYROXINE 137MCG TABLET (0.137MG) PO SCH (05:48)
[2023-05-28] MEDS: HYDROCORTISONE 10 MG TAB PO SCH (10:33)
[2023-05-28] MEDS: FUROSEMIDE 100MG/10ML VIAL IV ONE (11:27)
[2023-05-28] MEDS ORDERED: GLUCAGON INJ 1MG VIAL SC PRN (11:30)
[2023-05-28] MEDS ORDERED: DEXTROSE 50% 50ML SYRINGE IV PRN (11:30)
[2023-05-28] MEDS ORDERED: GLUCOSE 4GM CHEW TABLET PO PRN (11:30)
[2023-05-28] MEDS: INSULIN LISPRO (NovoLOG) PER UNIT SC SCH ×2 (11:45→20:22)
[2023-05-28 12:24] LABS: CREATININE,RANDOM URINE 112.2 MG/DL
[2023-05-28] MEDS ORDERED: SODIUM CHLORIDE NASAL 0.65% SPRAY BTL (OCEAN) PRN (13:05)
[2023-05-28] MEDS: LEVEMIR (INSULIN DETEMIR) 1 UNITS/0.01ML SC SCH (13:39)
[2023-05-28] MEDS: CEFDINIR 300 MG CAP (OMNICEF) PO SCH (14:54)
[2023-05-28] MEDS: FLUTICASONE PROP 0.05% NASAL SPRAY 16 GM (FLONASE) NARES SCH (14:54)
[2023-05-28 15:04] LABS: PROCALCITONIN 14.76 ng/ml
[2023-05-28] MEDS: HYDROCORTISONE 100MG/2ML VIAL IV SCH (20:28)
[2023-05-29] VITALS (7 sets, daily range): BP systolic 121–177; BP diastolic 59–83; TEMP 97.5–97.8; O2SAT 95–99
[2023-05-29 04:59] LABS: BASO % 0.1 % (0.0-1.0); HEMATOCRIT 27.8 % (36.0-47.0); HEMOGLOBIN 10.2 g/dl (12.0-15.5); LYMPH % 10.3 % (24.0-44.0); MEAN CORPUSCULAR HEMOGLOBIN 34.2 pg (27.0-33.0); MEAN CORPUSCULAR VOLUME 93.3 fl (80.0-96.0); MONO # 0.4 10^3/uL (0.0-0.8); MONO % 3.7 % (2.0-8.0); NEUTROPHILS % 84.8 % (36.0-66.0); PLATELET COUNT, AUTOMATED 204 10^3/uL (150-450); RED BLOOD COUNT 2.98 10^6/uL (4.00-5.40); WHITE BLOOD COUNT 9.4 10^3/uL (4.0-10.0)
[2023-05-29 05:00] LABS: MEAN CORPUSCULAR HGB CONC 36.7 g/dl (32.0-36.5)
[2023-05-29 05:39] LABS: BLOOD UREA NITROGEN 77 MG/DL (9-23); CALCIUM LEVEL 7.4 MG/DL (8.5-10.1); CARBON DIOXIDE LEVEL 25 MMOL/L (20-31); CHLORIDE LEVEL 101 MMOL/L (98-107); CREATININE FOR GFR 7.59 MG/DL (0.55-1.30); GLOMERULAR FILTRATION RATE 5.8 (>51); GLUCOSE, FASTING 201 MG/DL (60-100); MAGNESIUM LEVEL 2.4 MG/DL (1.8-2.4); PHOSPHORUS LEVEL 5.9 MG/DL (2.5-4.9); POTASSIUM SERUM 4.4 MMOL/L (3.5-5.1); SODIUM LEVEL 136 MMOL/L (136-145)
[2023-05-29] MEDS: PANTOPRAZOLE 40MG TAB (PROTONIX) PO SCH (08:50)
[2023-05-29] MEDS ORDERED: HEPARIN 1,000UNITS/ML 10ML VIAL (FOR RADIOLOGY & DIALYSIS ONLY) IV PRN (10:20)
[2023-05-29] MEDS ORDERED: SODIUM CHLORIDE 0.9% 1000ML IV PRN (10:20)
[2023-05-29 11:17] LABS: COMPLEMENT C3 138.4 MG/DL (90.0-170.0); COMPLEMENT C4 24.4 MG/DL (12-36); RHEUMATOID FACTOR QUANT < 3.5 IU/ML (<14)
[2023-05-29] MEDS: HEPARIN 1,000UNITS/ML 10ML VIAL (FOR RADIOLOGY & DIALYSIS ONLY) XX ONE (11:25)
[2023-05-29] MEDS: HEPARIN 1,000UNITS/ML 10ML VIAL (FOR RADIOLOGY & DIALYSIS ONLY) XX SCH (11:39)
[2023-05-29 11:58] LABS: HEPATITIS B CORE ANTIBODY IGM NEGATIVE (NEGATIVE); HEPATITIS C VIRUS ABY INDEX < 0.02 INDEX (<0.8)
[2023-05-29 12:55] LABS: HEPATITIS B CORE ANTIBODY IGM NEGATIVE (NEGATIVE); HEPATITIS B SURFACE ANTIBODY NEGATIVE (POSITIVE); HEPATITIS C VIRUS ABY INDEX 0.02 INDEX (<0.8)
[2023-05-29] MEDS: (RENVELA) SEVELAMER **CARBONate** 800 MG TAB PO SCH (13:09)
[2023-05-29] MEDS: **hydrALAZINE HCL** 25 MG TAB PO PRN (18:41)
[2023-05-30] VITALS (9 sets, daily range): BP systolic 135–170; BP diastolic 64–82; TEMP 97.1–98.1; O2SAT 93–98
[2023-05-30 05:56] LABS: BASO % 0.2 % (0.0-1.0); EOS # 0.1 10^3/uL (0.0-0.5); EOS % 0.7 % (0.0-3.0); HEMATOCRIT 31.5 % (36.0-47.0); HEMOGLOBIN 10.3 g/dl (12.0-15.5); LYMPH # 2.5 10^3/uL (1.5-5.0); LYMPH % 29.6 % (24.0-44.0); MEAN CORPUSCULAR HEMOGLOBIN 29.7 pg (27.0-33.0); MEAN CORPUSCULAR HGB CONC 32.7 g/dl (32.0-36.5); MEAN CORPUSCULAR VOLUME 90.8 fl (80.0-96.0); MONO # 0.7 10^3/uL (0.0-0.8); MONO % 8.2 % (2.0-8.0); NEUTROPHILS # 5.1 10^3/uL (1.5-8.5); NEUTROPHILS % 59.8 % (36.0-66.0); PLATELET COUNT, AUTOMATED 192 10^3/uL (150-450); RED BLOOD COUNT 3.47 10^6/uL (4.00-5.40); WHITE BLOOD COUNT 8.6 10^3/uL (4.0-10.0)
[2023-05-30] MEDS ORDERED: HEPARIN 1,000UNITS/ML 10ML VIAL (FOR RADIOLOGY & DIALYSIS ONLY) XX SCH (06:00)
[2023-05-30] MEDS ORDERED: HEPARIN 1,000UNITS/ML 10ML VIAL (FOR RADIOLOGY & DIALYSIS ONLY) IV PRN (06:00)
[2023-05-30] MEDS ORDERED: SODIUM CHLORIDE 0.9% 1000ML IV PRN (06:00)
[2023-05-30 06:28] LABS: BILIRUBIN,TOTAL 0.2 MG/DL (0.3-1.2); CALCIUM LEVEL 7.5 MG/DL (8.5-10.1); CREATININE FOR GFR 5.21 MG/DL (0.55-1.30); MAGNESIUM LEVEL 2.1 MG/DL (1.8-2.4); POTASSIUM SERUM 3.9 MMOL/L (3.5-5.1); TOTAL PROTEIN 5.4 G/DL (5.7-8.2)
[2023-05-30] MEDS: HYDROCORTISONE 5MG TABLET PO SCH ×2 (08:09→15:36)
[2023-05-30] MEDS: ROSUVASTATIN 10 MG TAB (CRESTOR) PO SCH (09:00)
[2023-05-30] MEDS ORDERED: CEFDINIR 300 MG CAP (OMNICEF) PO SCH (16:00)
[2023-05-30] MEDS: CEFDINIR 300 MG CAP (OMNICEF) PO SCH (18:16)
[2023-05-31] VITALS (13 sets, daily range): BP systolic 104–157; BP diastolic 53–74; TEMP 97.4–98.3; O2SAT 92–100
[2023-05-31] MEDS ORDERED: HEPARIN 1,000UNITS/ML 10ML VIAL (FOR RADIOLOGY & DIALYSIS ONLY) IV PRN (06:00)
[2023-05-31] MEDS ORDERED: HEPARIN 1,000UNITS/ML 10ML VIAL (FOR RADIOLOGY & DIALYSIS ONLY) XX SCH (06:00)
[2023-05-31] MEDS ORDERED: SODIUM CHLORIDE 0.9% 1000ML IV PRN (06:00)
[2023-05-31 06:04] LABS: BASO % 0.2 % (0.0-1.0); EOS # 0.1 10^3/uL (0.0-0.5); EOS % 1.2 % (0.0-3.0); HEMATOCRIT 33.7 % (36.0-47.0); HEMOGLOBIN 10.8 g/dl (12.0-15.5); LYMPH # 2.8 10^3/uL (1.5-5.0); LYMPH % 32.1 % (24.0-44.0); MEAN CORPUSCULAR HEMOGLOBIN 28.3 pg (27.0-33.0); MEAN CORPUSCULAR VOLUME 88.2 fl (80.0-96.0); MONO # 0.7 10^3/uL (0.0-0.8); MONO % 8.1 % (2.0-8.0); NEUTROPHILS # 5.1 10^3/uL (1.5-8.5); NEUTROPHILS % 57.2 % (36.0-66.0); PLATELET COUNT, AUTOMATED 178 10^3/uL (150-450); RED BLOOD COUNT 3.82 10^6/uL (4.00-5.40); WHITE BLOOD COUNT 8.9 10^3/uL (4.0-10.0)
[2023-05-31 06:36] LABS: ALBUMIN 2.1 G/DL (3.2-5.2); BILIRUBIN,TOTAL 0.2 MG/DL (0.3-1.2); CALCIUM LEVEL 7.5 MG/DL (8.5-10.1); CREATININE FOR GFR 4.25 MG/DL (0.55-1.30); GLOMERULAR FILTRATION RATE 11.4 (>51); MAGNESIUM LEVEL 1.9 MG/DL (1.8-2.4); POTASSIUM SERUM 3.7 MMOL/L (3.5-5.1); TOTAL PROTEIN 5.4 G/DL (5.7-8.2)
[2023-05-31 16:09] LABS: COMPLEMENT TOTAL (CH50) > 60 U/mL (>41)
[2023-06-01] VITALS (14 sets, daily range): BP systolic 107–162; BP diastolic 56–79; TEMP 97.6–98.7; O2SAT 89–99
[2023-06-01 05:24] LABS: ALBUMIN 2.1 G/DL (3.2-5.2); BILIRUBIN,TOTAL 0.3 MG/DL (0.3-1.2); CALCIUM LEVEL 7.5 MG/DL (8.5-10.1); CREATININE FOR GFR 3.77 MG/DL (0.55-1.30); GLOMERULAR FILTRATION RATE 13.1 (>51); MAGNESIUM LEVEL 1.9 MG/DL (1.8-2.4); POTASSIUM SERUM 3.5 MMOL/L (3.5-5.1); TOTAL PROTEIN 5.4 G/DL (5.7-8.2)
[2023-06-01 05:26] LABS: BASO % 0.3 % (0.0-1.0); EOS # 0.2 10^3/uL (0.0-0.5); EOS % 2.1 % (0.0-3.0); HEMATOCRIT 32.7 % (36.0-47.0); HEMOGLOBIN 10.5 g/dl (12.0-15.5); LYMPH % 31.2 % (24.0-44.0); MEAN CORPUSCULAR HGB CONC 32.1 g/dl (32.0-36.5); MEAN CORPUSCULAR VOLUME 87.2 fl (80.0-96.0); MONO # 0.8 10^3/uL (0.0-0.8); MONO % 8.3 % (2.0-8.0); NEUTROPHILS # 5.5 10^3/uL (1.5-8.5); NEUTROPHILS % 55.9 % (36.0-66.0); PLATELET COUNT, AUTOMATED 183 10^3/uL (150-450); RED BLOOD COUNT 3.75 10^6/uL (4.00-5.40); WHITE BLOOD COUNT 9.7 10^3/uL (4.0-10.0)
[2023-06-01] MEDS: HYDROCORTISONE 10 MG TAB PO SCH ×2 (09:00→13:34)
[2023-06-02 05:36] VITALS: BP 151/70; TEMP 97.2; O2SAT 95
[2023-06-02 06:01] LABS: BASO % 0.3 % (0.0-1.0); EOS # 0.2 10^3/uL (0.0-0.5); EOS % 2.1 % (0.0-3.0); HEMATOCRIT 30.9 % (36.0-47.0); HEMOGLOBIN 9.9 g/dl (12.0-15.5); LYMPH # 3.1 10^3/uL (1.5-5.0); LYMPH % 26.8 % (24.0-44.0); MEAN CORPUSCULAR VOLUME 87.5 fl (80.0-96.0); MONO # 0.8 10^3/uL (0.0-0.8); MONO % 6.7 % (2.0-8.0); NEUTROPHILS # 7.1 10^3/uL (1.5-8.5); NEUTROPHILS % 61.8 % (36.0-66.0); PLATELET COUNT, AUTOMATED 205 10^3/uL (150-450); RED BLOOD COUNT 3.53 10^6/uL (4.00-5.40); WHITE BLOOD COUNT 11.5 10^3/uL (4.0-10.0)
[2023-06-02 06:17] LABS: ALBUMIN 2.1 G/DL (3.2-5.2); BILIRUBIN,TOTAL 0.2 MG/DL (0.3-1.2); CALCIUM LEVEL 7.7 MG/DL (8.5-10.1); CREATININE FOR GFR 5.39 MG/DL (0.55-1.30); GLOMERULAR FILTRATION RATE 8.7 (>51); MAGNESIUM LEVEL 2.1 MG/DL (1.8-2.4); POTASSIUM SERUM 3.9 MMOL/L (3.5-5.1); TOTAL PROTEIN 5.2 G/DL (5.7-8.2)
[2023-06-02 07:23] VITALS: BP 168/76; TEMP 98.3; O2SAT 97
[2023-06-02] MEDS ORDERED: SODIUM CHLORIDE 0.9% 1000ML IV PRN (08:50)
[2023-06-02] MEDS ORDERED: HEPARIN 1,000UNITS/ML 10ML VIAL (FOR RADIOLOGY & DIALYSIS ONLY) IV PRN (08:50)
[2023-06-02] MEDS ORDERED: HEPARIN 1,000UNITS/ML 10ML VIAL (FOR RADIOLOGY & DIALYSIS ONLY) XX SCH (08:50)
[2023-06-02 15:52] VITALS: BP 99/49; TEMP 97.8; O2SAT 92
[2023-06-02 17:22] VITALS: BP 114/69
[2023-06-02 21:12] VITALS: BP 138/60; TEMP 97.3; O2SAT 93
[2023-06-03] VITALS (14 sets, daily range): BP systolic 129–180; BP diastolic 67–78; TEMP 97.5–98.3; O2SAT 75–99
[2023-06-03 06:03] LABS: BASO # 0.1 10^3/uL (0.0-0.2); BASO % 0.4 % (0.0-1.0); EOS # 0.4 10^3/uL (0.0-0.5); HEMATOCRIT 33.2 % (36.0-47.0); HEMOGLOBIN 10.6 g/dl (12.0-15.5); LYMPH # 3.7 10^3/uL (1.5-5.0); LYMPH % 29.6 % (24.0-44.0); MEAN CORPUSCULAR HGB CONC 31.9 g/dl (32.0-36.5); MEAN CORPUSCULAR VOLUME 87.6 fl (80.0-96.0); MONO # 0.8 10^3/uL (0.0-0.8); MONO % 6.1 % (2.0-8.0); NEUTROPHILS # 7.2 10^3/uL (1.5-8.5); NEUTROPHILS % 57.8 % (36.0-66.0); PLATELET COUNT, AUTOMATED 235 10^3/uL (150-450); RED BLOOD COUNT 3.79 10^6/uL (4.00-5.40); WHITE BLOOD COUNT 12.4 10^3/uL (4.0-10.0)
[2023-06-03 06:27] LABS: ALBUMIN 2.3 G/DL (3.2-5.2); BILIRUBIN,TOTAL 0.3 MG/DL (0.3-1.2); CALCIUM LEVEL 7.7 MG/DL (8.5-10.1); CREATININE FOR GFR 4.24 MG/DL (0.55-1.30); GLOMERULAR FILTRATION RATE 11.4 (>51); MAGNESIUM LEVEL 1.9 MG/DL (1.8-2.4); POTASSIUM SERUM 3.9 MMOL/L (3.5-5.1); TOTAL PROTEIN 5.7 G/DL (5.7-8.2)
[2023-06-04 01:23] VITALS: O2SAT 97
[2023-06-04 05:46] LABS: BASO % 0.2 % (0.0-1.0); EOS # 0.3 10^3/uL (0.0-0.5); HEMATOCRIT 28.9 % (36.0-47.0); HEMOGLOBIN 9.4 g/dl (12.0-15.5); LYMPH # 3.2 10^3/uL (1.5-5.0); LYMPH % 25.9 % (24.0-44.0); MEAN CORPUSCULAR HEMOGLOBIN 28.3 pg (27.0-33.0); MEAN CORPUSCULAR HGB CONC 32.5 g/dl (32.0-36.5); NEUTROPHILS # 7.6 10^3/uL (1.5-8.5); NEUTROPHILS % 61.5 % (36.0-66.0); PLATELET COUNT, AUTOMATED 232 10^3/uL (150-450); RED BLOOD COUNT 3.32 10^6/uL (4.00-5.40); WHITE BLOOD COUNT 12.4 10^3/uL (4.0-10.0)
[2023-06-04 05:54] VITALS: BP 146/88; TEMP 97.7; O2SAT 94
[2023-06-04 06:14] LABS: ALBUMIN 2.3 G/DL (3.2-5.2); BILIRUBIN,TOTAL 0.2 MG/DL (0.3-1.2); CALCIUM LEVEL 7.8 MG/DL (8.5-10.1); CREATININE FOR GFR 5.41 MG/DL (0.55-1.30); GLOMERULAR FILTRATION RATE 8.6 (>51); PHOSPHORUS LEVEL 6.2 MG/DL (2.5-4.9); POTASSIUM SERUM 3.9 MMOL/L (3.5-5.1); TOTAL PROTEIN 5.4 G/DL (5.7-8.2)
[2023-06-04 08:07] LABS: PARTIAL THROMBOPLASTIN TIME 26.8 SECONDS (24.8-34.2); PROTHROMBIN TIME 12.9 SECONDS (12.5-14.5)
[2023-06-04 08:15] VITALS: O2SAT 98
[2023-06-04 08:55] VITALS: O2SAT 92
[2023-06-04] MEDS ORDERED: HEPARIN 1,000UNITS/ML 10ML VIAL (FOR RADIOLOGY & DIALYSIS ONLY) As Ordered ONE (09:41)
[2023-06-04] MEDS ORDERED: LIDOCAINE W/EPINEPHRINE 1% 20ML VIAL As Ordered ONE (09:41)
[2023-06-04] MEDS ORDERED: LIDOCAINE 1% MDV 20ML VIAL As Ordered ONE (09:42)
[2023-06-04] MEDS ORDERED: fentaNYL 100 MCG/2 ML INJECTION As Ordered ONE (10:16)
[2023-06-04] MEDS ORDERED: VANCOMYCIN 1000MG/20ML VIAL As Ordered ONE (10:28)
[2023-06-04] MEDS ORDERED: LR 1,000 ML IV SCH (11:00)
[2023-06-04] MEDS: VANCOMYCIN HCL 1,000 MG, VIAL MATE ADAPTER 1 EACH in D5W 250 ML IV ONE (11:00)
[2023-06-04] MEDS: NS 1,000 ML IV SCH (13:06)
[2023-06-04 14:00] VITALS: BP 122/67; TEMP 97.9; O2SAT 95
[2023-06-04 22:00] VITALS: BP 149/74; TEMP 97.5; O2SAT 95
[2023-06-05 05:00] VITALS: BP 137/66; TEMP 98.4; O2SAT 94
[2023-06-05] MEDS ORDERED: SODIUM CHLORIDE 0.9% 1000ML IV PRN (06:00)
[2023-06-05] MEDS ORDERED: HEPARIN 1,000UNITS/ML 10ML VIAL (FOR RADIOLOGY & DIALYSIS ONLY) IV PRN (06:00)
[2023-06-05] MEDS ORDERED: HEPARIN 1,000UNITS/ML 10ML VIAL (FOR RADIOLOGY & DIALYSIS ONLY) XX SCH (06:00)
[2023-06-05 06:08] LABS: BASO % 0.2 % (0.0-1.0); EOS # 0.2 10^3/uL (0.0-0.5); EOS % 1.7 % (0.0-3.0); HEMATOCRIT 29.1 % (36.0-47.0); HEMOGLOBIN 9.1 g/dl (12.0-15.5); LYMPH # 2.4 10^3/uL (1.5-5.0); LYMPH % 20.6 % (24.0-44.0); MEAN CORPUSCULAR HEMOGLOBIN 27.5 pg (27.0-33.0); MEAN CORPUSCULAR HGB CONC 31.3 g/dl (32.0-36.5); MEAN CORPUSCULAR VOLUME 87.9 fl (80.0-96.0); MONO # 0.7 10^3/uL (0.0-0.8); MONO % 6.5 % (2.0-8.0); NEUTROPHILS # 7.9 10^3/uL (1.5-8.5); NEUTROPHILS % 69.3 % (36.0-66.0); PLATELET COUNT, AUTOMATED 239 10^3/uL (150-450); RED BLOOD COUNT 3.31 10^6/uL (4.00-5.40); WHITE BLOOD COUNT 11.5 10^3/uL (4.0-10.0)
[2023-06-05 06:43] LABS: ALBUMIN 2.2 G/DL (3.2-5.2); BILIRUBIN,TOTAL 0.2 MG/DL (0.3-1.2); CALCIUM LEVEL 7.9 MG/DL (8.5-10.1); CREATININE FOR GFR 6.07 MG/DL (0.55-1.30); GLOMERULAR FILTRATION RATE 7.6 (>51); POTASSIUM SERUM 4.5 MMOL/L (3.5-5.1); TOTAL PROTEIN 5.4 G/DL (5.7-8.2)
[2023-06-05 13:18] VITALS: BP 124/63; TEMP 97.7; O2SAT 95
[2023-06-05 21:07] VITALS: BP 122/61; TEMP 97.9; O2SAT 91
[2023-06-06 04:40] VITALS: BP 132/55; TEMP 97.5; O2SAT 96
[2023-06-06] MEDS ORDERED: HEPARIN 1,000UNITS/ML 10ML VIAL (FOR RADIOLOGY & DIALYSIS ONLY) XX SCH (06:00)
[2023-06-06] MEDS ORDERED: HEPARIN 1,000UNITS/ML 10ML VIAL (FOR RADIOLOGY & DIALYSIS ONLY) IV PRN (06:00)
[2023-06-06] MEDS ORDERED: SODIUM CHLORIDE 0.9% 1000ML IV PRN (06:00)
[2023-06-06 07:49] LABS: BASO # 0.1 10^3/uL (0.0-0.2); BASO % 0.3 % (0.0-1.0); EOS # 0.2 10^3/uL (0.0-0.5); EOS % 1.6 % (0.0-3.0); HEMATOCRIT 32.3 % (36.0-47.0); HEMOGLOBIN 10.2 g/dl (12.0-15.5); LYMPH # 4.7 10^3/uL (1.5-5.0); LYMPH % 31.9 % (24.0-44.0); MEAN CORPUSCULAR HEMOGLOBIN 27.6 pg (27.0-33.0); MEAN CORPUSCULAR HGB CONC 31.6 g/dl (32.0-36.5); MEAN CORPUSCULAR VOLUME 87.3 fl (80.0-96.0); MONO # 0.8 10^3/uL (0.0-0.8); MONO % 5.3 % (2.0-8.0); NEUTROPHILS # 8.8 10^3/uL (1.5-8.5); NEUTROPHILS % 59.4 % (36.0-66.0); PLATELET COUNT, AUTOMATED 250 10^3/uL (150-450); WHITE BLOOD COUNT 14.8 10^3/uL (4.0-10.0)
[2023-06-06 08:30] LABS: CALCIUM LEVEL 7.9 MG/DL (8.5-10.1); CREATININE FOR GFR 3.75 MG/DL (0.55-1.30); GLOMERULAR FILTRATION RATE 13.2 (>51); POTASSIUM SERUM 3.6 MMOL/L (3.5-5.1)
[2023-06-06 20:20] VITALS: BP 126/53; TEMP 97.3; O2SAT 92
[2023-06-07 06:08] VITALS: BP 141/63; TEMP 98.4; O2SAT 95
[2023-06-07 08:05] LABS: BASO # 0.1 10^3/uL (0.0-0.2); BASO % 0.4 % (0.0-1.0); EOS # 0.2 10^3/uL (0.0-0.5); EOS % 1.3 % (0.0-3.0); HEMATOCRIT 30.9 % (36.0-47.0); LYMPH # 4.7 10^3/uL (1.5-5.0); LYMPH % 31.3 % (24.0-44.0); MEAN CORPUSCULAR HEMOGLOBIN 27.9 pg (27.0-33.0); MEAN CORPUSCULAR HGB CONC 32.4 g/dl (32.0-36.5); MEAN CORPUSCULAR VOLUME 86.3 fl (80.0-96.0); MONO # 0.8 10^3/uL (0.0-0.8); MONO % 5.5 % (2.0-8.0); NEUTROPHILS % 60.1 % (36.0-66.0); PLATELET COUNT, AUTOMATED 235 10^3/uL (150-450); RED BLOOD COUNT 3.58 10^6/uL (4.00-5.40)
[2023-06-07 08:41] LABS: CREATININE FOR GFR 2.76 MG/DL (0.55-1.30); GLOMERULAR FILTRATION RATE 18.8 (>51); POTASSIUM SERUM 3.3 MMOL/L (3.5-5.1)
[2023-06-07] MEDS: POTASSIUM CHLORIDE 10MEQ SR TABLET PO ONE (13:00)
[2023-06-07 14:00] VITALS: BP 111/45; TEMP 97.7; O2SAT 94
[2023-06-07 21:00] VITALS: BP 126/59; TEMP 98.6; O2SAT 93
[2023-06-08 05:21] VITALS: BP 148/68; TEMP 97.9; O2SAT 93
[2023-06-08 10:01] LABS: ALBUMIN 2.6 G/DL (3.2-5.2); CALCIUM LEVEL 8.2 MG/DL (8.5-10.1); CREATININE FOR GFR 3.63 MG/DL (0.55-1.30); GLOMERULAR FILTRATION RATE 13.7 (>51); POTASSIUM SERUM 4.3 MMOL/L (3.5-5.1)
[2023-06-08] MEDS ORDERED: HYDR5TAB PO (11:30)
[2023-06-08 14:00] VITALS: BP 134/61; TEMP 97.7; O2SAT 91
== END 2023-06-08 16:43 | disposition home health service (06) | DRG 720 ==
LOC: M ED 02:10 → M ED INP 09:38 → M ICU 10:27 → M PCU 05-30 17:03 → M MSPAV 06-03 11:24
PROVIDERS: ADMIT Internal Medicine Pulmonary Disease; ATTEND Internal Medicine
PROC: B246ZZZ Ultrasonography of Right and Left Heart (ICD-10-PCS; 2023-05-28)
PROC: 5A1D70Z Performance of Urinary Filtration, Intermittent, Less than 6 Hours Per Day (ICD-10-PCS; 2023-05-28)
PROC: 02HV33Z Insertion of Infusion Device into Superior Vena Cava, Percutaneous Approach (ICD-10-PCS; principal; 2023-05-29)
DX: A41.9 Sepsis, unspecified organism (principal); J96.01 Acute respiratory failure with hypoxia; U07.1 COVID-19; N17.0 Acute kidney failure with tubular necrosis; R65.21 Severe sepsis with septic shock; G93.41 Metabolic encephalopathy; E23.2 Diabetes insipidus; D69.6 Thrombocytopenia, unspecified; N18.30 Chronic kidney disease, stage 3 unspecified; J81.1 Chronic pulmonary edema; E11.22 Type 2 diabetes mellitus with diabetic chronic kidney disease; I50.22 Chronic systolic (congestive) heart failure; E23.0 Hypopituitarism; E27.3 Drug-induced adrenocortical insufficiency; E66.01 Morbid (severe) obesity due to excess calories; E87.1 Hypo-osmolality and hyponatremia; K76.0 Fatty (change of) liver, not elsewhere classified; H65.03 Acute serous otitis media, bilateral; J32.4 Chronic pansinusitis; E03.9 Hypothyroidism, unspecified; E78.00 Pure hypercholesterolemia, unspecified; D64.9 Anemia, unspecified; F17.210 Nicotine dependence, cigarettes, uncomplicated; G47.33 Obstructive sleep apnea (adult) (pediatric); Z79.84 Long term (current) use of oral hypoglycemic drugs; Z79.899 Other long term (current) drug therapy; Z88.0 Allergy status to penicillin; Z68.39 Body mass index [BMI] 39.0-39.9, adult

== ENCOUNTER → 2023-08-21 | Outpatient (REF) | payer OTHER, MEDICAID ==
[~2023-08-21] MED LIST changes: +HYDR5TAB PO; +LEVO175T2 PO; +METF500T13 PO; -ROSU40TA4 PO; +ROSU40TA63 PO
[2023-08-21 18:47] LABS: HEMOGLOBIN A1c 6.1 % (4.0-6.0)
[2023-08-21 19:01] LABS: ALKALINE PHOSPHATASE 97 U/L (46-116); ALT/SGPT 15 U/L (7.0-40); AST/SGOT 14 U/L (<34); BILIRUBIN,TOTAL 0.2 MG/DL (0.3-1.2); BLOOD UREA NITROGEN 8 MG/DL (9-23); CALCIUM LEVEL 8.2 MG/DL (8.5-10.1); CARBON DIOXIDE LEVEL 30 MMOL/L (20-31); CHLORIDE LEVEL 107 MMOL/L (98-107); CHOLESTEROL LEVEL 244 MG/DL (<200); CHOLESTEROL RISK RATIO 5.57 (<5); CREATININE FOR GFR 1.54 MG/DL (0.55-1.30); GLOMERULAR FILTRATION RATE 36.8 (>51); GLUCOSE, FASTING 171 MG/DL (60-100); HDL CHOLESTEROL 43.8 MG/DL (>40); NON-HDL-C 200.2 MG/DL; POTASSIUM SERUM 4.3 MMOL/L (3.5-5.1); SODIUM LEVEL 141 MMOL/L (136-145); TOTAL PROTEIN 6.4 G/DL (5.7-8.2); TRIGLYCERIDES LEVEL 415 MG/DL (<150)
[2023-08-21 19:03] LABS: THYROID STIMULATING HORMONE 1.417 uIU/ML (0.55-4.78)
== END ==
LOC: M LAB REF 17:19
PROVIDERS: ATTEND Family Medicine Addiction Medicine
DX: E11.9 Type 2 diabetes mellitus without complications (principal)

== ENCOUNTER 2024-04-09 17:14 | Emergency (ER) | payer OTHER ==
[~2024-04-09] VITALS: Ht 162.6 cm; Wt 99.1 kg
[~2024-04-09 17:14] MED LIST changes: -ROSU40TA63 PO; +ROSU40TA81 PO
[2024-04-09 17:38] VITALS: BP 125/67; TEMP 96.8; O2SAT 92
[2024-04-09] MEDS: HYDROCORTISONE 10 MG TAB PO ONE ×2 (20:50→20:55)
== END 2024-04-09 21:17 | disposition home or self-care (01) ==
LOC: M ED 17:14
DX: Z76.0 Encounter for issue of repeat prescription (principal); F17.210 Nicotine dependence, cigarettes, uncomplicated; Z88.0 Allergy status to penicillin; Z79.899 Other long term (current) drug therapy